=== PATIENT | male | born 1995 | race Caucasian/White ===

== ENCOUNTER 2017-11-19 21:44 | Emergency (ER) | payer OTHER ==
--- NOTE | 2017-11-19 22:15 | CPEKG ---
Heart Rate: 71 RR Interval: 845 P-R Interval: 172 QRSD Interval: 86 QT Interval: 360 QTC Interval: 392 P Acworth: 24 QRS Acworth: 80 T Wave Acworth: 50 EKG Severity - ABNORMAL ECG - EKG Impression: SINUS RHYTHM EKG Impression: ST ELEVATION SUGGESTS PERICARDITIS Electronically Signed By: Steve Hughes 19-Nov-2017 22:19:22
[2017-11-19] MEDS ORDERED: KETOROLAC 15 MG/1 ML SDV IVP ONE (22:31)
--- NOTE | 2017-11-19 22:31 | EDPHY ---
H & P Stated Complaint: L CP, STARTING 1400, AFTER RUN, WORSENING IN LAST HOUR Time Seen by Provider: 11/19/17 22:15 HPI/ROS: HPI The patient presents with chest pain which began this morning and has been constant since. The pain is sharp and stabbing, worse with deep breaths and movement, improved when lying flat and worse when sitting forward. He earlier today before his pain started ran for 3 miles on the treadmill which is unusual for him. He does not have any shortness of breath, leg swelling, dizziness, diaphoresis. He has not tried any medications for this. He has no prior history of similar. He has not been sick lately with any URI type symptoms. REVIEW OF SYSTEMS Constitutional: No fever, no chills. Eyes: No discharge. ENT: No sore throat. Cardiovascular: Positive for chest pain, no palpitations. Respiratory: No cough, no shortness of breath. Gastrointestinal: No abdominal pain, no vomiting. Genitourinary: No hematuria. Musculoskeletal: No back pain. Skin: No rashes. Neurological: No headache. PMHx: Healthy Soc Hx: College student PHYSICAL General Appearance: Alert, no distress Eyes: Pupils equal and round no pallor or injection ENT, Mouth: Mucous membranes moist Respiratory: There are no retractions, lungs are clear to auscultation Cardiovascular: Regular rate and rhythm , no pericardial friction rub Gastrointestinal: Abdomen is soft and non-tender, no masses, bowel sounds normal Neurological: A&O, moves all extremities Skin: Warm and dry, no rashes Musculoskeletal: Neck is supple non tender Extremities: symmetrical, full range of motion Psychiatric: Patient is oriented X 3, there is no agitation Source: Patient Exam Limitations: No limitations - Personal History Current Tetanus Diphtheria and Acellular Pertussis (TDAP): Yes - Medical/Surgical History Hx Asthma: No Hx Chronic Respiratory Disease: No Hx Diabetes: No Hx Cardiac Disease: No Hx Renal Disease: No Hx Cirrhosis: No Hx Alcoholism: No Hx HIV/AIDS: No Hx Splenectomy or Spleen Trauma: No Other PMH: ACL SX R - Social History Smoking Status: Never smoked Constitutional: Initial Vital Signs Temperature (C) 36.6 C 11/19/17 21:49 Heart Rate 74 11/19/17 21:49 Respiratory Rate 20 11/19/17 21:49 Blood Pressure 136/83 H 11/19/17 21:49 O2 Sat (%) 97 11/19/17 21:49 O2 Delivery Mode Room Air Allergies/Adverse Reactions: No Known Allergies Allergy (Unverified 11/19/17 21:49) Home Medications: Medication Instructions Recorded Colchicine 0.6 mg PO BID #30 capsule 11/19/17 Naproxen 250 mg PO BID #30 tablet 11/19/17 Medical Decision Making - Diagnostics EKG Interpretation: EKG: Complete interpretation has been separately recorded in the [facility] archive. Summary impression: Normal sinus rhythm, ST he segment elevation diffusely with ME depression Differential Diagnosis: This is a 22-year-old male, healthy, who presents with 1 day of pleuritic chest pain, worse when he sits forward and relieved when he lays back. Pain is sharp in nature, in the left anterior chest. On exam, vital signs are normal, he does not have any signs of infection. Differential diagnosis includes pericarditis, costochondritis, less likely pulmonary embolism given normal vital signs and no risk factors. In the emergency department, labs and studies were obtained. EKG showed diffuse ST segment elevations concerning for pericarditis. Because of this basic labs and chest x-ray were obtained. These were all unremarkable with no sign of pericardial effusion. I do not feel he has myocarditis though likely is suffering from pericarditis based on his story and EKG. I have discussed this with him at length. I feel the cause is likely viral verses idiopathic. I will treat him with NSAIDs and colchicine. I have discussed the diagnosis with him and have encouraged him to follow up with Cardiology in the next 1 week. He is planning to go out of state for several months and he should be evaluated before he does this. He is in agreement with this plan. - Data Points Laboratory Results: Laboratory Results 11/19/17 22:30 11/19/17 22:30 Medications Given: Discontinued Medications Colchicine (Colchicine) 0.6 mg PO EDNOW ONE Stop: 11/19/17 23:18 Last Admin: 11/19/17 23:43 Dose: 0.6 mg Ketorolac Tromethamine (Toradol) 15 mg IVP EDNOW ONE Stop: 11/19/17 22:32 Last Admin: 11/19/17 22:42 Dose: 15 mg Departure - Departure Disposition: Home, Routine, Self-Care Clinical Impression: Acute pericarditis Condition: Good Instructions: Acute Pericarditis (ED) Additional Instructions: Please make sure to avoid any strenuous exercise until your feeling better. You could have developed pericarditis from a viral infection, however frequently we do not figure out what caused it. I would like you to follow up with the crayon sorting machine feeder in 1-2 weeks. I have listed her information below. You should return to the emergency department if your worse in any way. Referrals: Alta Poe MD [Medical Doctor] - As per Instructions Prescriptions: Colchicine 0.6 mg PO BID #30 capsule Naproxen 250 mg PO BID #30 tablet
[2017-11-19 22:42] LABS: PLATELET COUNT 248 10^3/uL (150-400)
[2017-11-19] MEDS ORDERED: COLCHICINE 0.6 MG CAP/TAB PO ONE (23:17)
[2017-11-19 23:48] VITALS: BP 135/86
== END 2017-11-19 23:48 | disposition home or self-care (01) ==
DX: I30.9 Acute pericarditis, unspecified (principal)
CPT/HCPCS: 96374; J1885